=== PATIENT | male | born 1995 | race Two or more races ===

== ENCOUNTER 2025-08-30 17:03 | Emergency (ER) | payer OTHER ==
[~2025-08-30] VITALS: Ht 180.3 cm; Wt 99.8 kg
[2025-08-30] MEDS: EPINEPHRINE-PF 1:1000 1 MG/ML AMPUL/VIAL IV STA (17:32)
[2025-08-30 17:35] LABS: PLATELET COUNT (AUTO) 259 K/uL (152-348); RED BLOOD CELL COUNT(AUTO) 5.65 MIL/uL (4.06-5.63); RED CELL DISTRIBUTION WIDTH 13.2 % (12.1-16.2); WHITE BLOOD COUNT (AUTO) 7.0 K/uL (3.6-10.2)
[2025-08-30 17:49] LABS: ASPARTATE AMINOTRANSFERASE 19 U/L (15-37); CREATININE 0.9 mg/dL (0.6-1.3); SODIUM SERUM 142 mmol/L (136-145); TOTAL PROTEIN, SERUM 6.9 g/dL (6.4-8.2); UREA NITROGEN, BLOOD 26 mg/dL (7-18)
[2025-08-30] MEDS ORDERED: diphenhydrAMINE 50 MG/1 ML VIAL ONE (18:13)
[2025-08-30] MEDS: FAMOTIDINE. 20 MG/2 ML VIAL IV ONE (18:14)
[2025-08-30] MEDS: IV NORMAL SALINE 1000 ML BAG IV ONE (18:14)
[2025-08-30] MEDS: diphenhydrAMINE 50 MG/1 ML VIAL IV ONE (18:14)
[2025-08-30] MEDS ORDERED: FAMOTIDINE. 20 MG/2 ML VIAL IV ONE (18:14)
[2025-08-30] MEDS ORDERED: PRED50TA PO (19:25)
[2025-08-30] MEDS ORDERED: EPIN0.3P3 IM (19:25)
[2025-08-31 03:30] VITALS: BP 120/78
[2025-08-31 04:40] VITALS: BP 126/89; TEMP 98.2; O2SAT 98
== END 2025-08-31 04:45 | disposition home or self-care (01) ==
LOC: EDBD 17:03 → ER 17:03
DX: T78.2XXA Anaphylactic shock, unspecified, initial encounter (principal); T63.441A Toxic effect of venom of bees, accidental (unintentional), initial encounter; G25.3 Myoclonus; Z79.52 Long term (current) use of systemic steroids; Z91.030 Bee allergy status; Y92.89 Other specified places as the place of occurrence of the external cause
CPT/HCPCS: 99291; 96374; 96375; 96361; 80076; 80048; 85025; 84484 ×2; 36415; 71045; 93005; J2919; J1200; J1308; J7040; A4606; A4663